=== PATIENT | female | born 1990 | race Caucasian/White ===

== ENCOUNTER 2022-03-22 19:51 | Emergency (ER) | payer MEDICAID, SELFPAY ==
[2022-03-22 20:05] VITALS: BP 122/74; PULSE 75; RESP 18; TEMP 36.8; O2SAT 99; BMI 25.8
--- NOTE | 2022-03-22 20:14 | CRLHL7_ITS ---
For Patients: As a result of the Cures Act, medical imaging exams and procedure reports are released immediately into your electronic medical record. You may view this report before your referring provider. If you have questions, please contact your health care provider. INDICATION: BLEEDING AT 7 WEEKS HISTORY: Bleeding. Seven weeks gestation. Comparison: None. Technique: Pelvic ultrasound. Endovaginal imaging of the pelvis was obtained to better evaluate the adnexa and endometrial complex. Findings: There is a single living intrauterine embryo. The crown-rump length is 6.2 mm. This corresponds to a gestational age of 6 weeks, 3 days. The ultrasound GABINO is 11/12/2022. There is a perigestational hematoma, which measures 2.0 x 1.8 x 1.5 cm. This is heterogeneous. The yolk sac appears normal. There is also a normal yolk sac present. Cardiac activity by M-mode ultrasound is 122 beats per minute. The right ovary measures 5.8 x 3.5 x 3.9 cm. There is a corpus luteum cyst in the right ovary measuring 2.8 x 2.0 x 2.2 cm. There is a benign right ovarian cyst measuring 3.5 x 2.9 x 3.6 cm. The left ovary measures 4.5 x 2.9 x 3.7 cm. Benign left ovarian cyst, which measures 3.7 x 2.6 x 3.3 cm. Impression: 1. Single living intrauterine embryo, with an ultrasound gestational age today of 6 weeks, 3 days, corresponding to an ultrasound GABINO of 11/12/2022. 2. Small perigestational hematoma. Intrauterine gestational sac appears regular. Dictated by Jonathan Contreras MD @ 03/22/2022 9:41:15 PM Dictated by: Jonathan Contreras MD @ 03/22/2022 21:41:23 (Electronically Signed)
[2022-03-22 20:15] VITALS: O2SAT 99
--- NOTE | 2022-03-22 20:22 | ED_ITS ---
HPI - General Adult General Chief complaint: Vaginal Bleeding Stated complaint: Possible miscarriage Time Seen by Provider: 03/22/22 20:10 Source: patient Mode of arrival: ambulatory Limitations: no limitations History of Present Illness HPI narrative: 31-year-old female who is about 7 weeks comes in today with vaginal bleeding. Patient states that she started having cramping 2 days ago yesterday developed some brownish vaginal discharge and today turn pink and red. She states it is just on the tissue when she wipes and a couple drops in her underwear. She continues to have cramping. She denies any other systemic symptoms. She has not had her 1st OB appointment yet. Related Data Home Medications Medication Instructions Recorded Confirmed No Known Home Medications 03/22/22 03/22/22 Allergies Allergy/AdvReac Type Severity Reaction Status Date / Time No Known Drug Allergies Allergy Verified 03/22/22 20:08 Review of Systems Status of ROS: Reports: 10 or more systems reviewed and unremarkable except as noted in History and below [facility] Medical History (Updated 03/22/22 @ 21:46 by Twila Maynard MD) Alcohol use disorder in remission Anxiety Depression Emotional hypersensitivity Insomnia Medication management Panic attack Post-traumatic stress Tetrahydrocannabinol (THC) use disorder, mild, in sustained remission, abuse Surgical History (Updated 03/22/22 @ 21:02 by Juanito Prajapati RN) History of appendectomy History of colonoscopy with polypectomy Social History Smoking Status: Current every day smoker Second hand tobacco smoke exposure: Yes How often do you have a drink containing alcohol: never How often do you have six or more drinks on one occasion: Never AUDIT-C Alcohol total score: 0 Non-prescribed substance use: denies use Little interest or pleasure in doing things: several days Feeling down, depressed, or hopeless: several days Exam Narrative: Exam Narrative: Well-nourished well-developed patient in no acute distress but is anxious. Alert and oriented. Answers questions appropriately. Mood and affect are appropriate. Thoughts are goal oriented and rational. No tangential or magical thinking noted. Patient speaks in full sentences without needing to catch their breath. HEENT: Normocephalic atraumatic. Pupils are equally round reactive to light. Extraocular muscles are intact. Conjunctivae are moist without any icterus noted. Moist mucous membranes. Cardiovascular: Regular rate rhythm S1-S2 present without murmurs Lungs: Clear auscultation bilaterally Abdomen soft and nontender with normal bowel sounds. Const: Vital Signs, click to edit/add: Vital Signs - 24 hr 03/22/22 20:05 03/22/22 20:39 Temperature 98.2 F Pulse Rate 74 Pulse Rate [Right Pulse Oximeter] 75 Respiratory Rate 18 Blood Pressure [Ri ght Upper Arm] 122/74 Pulse Oximetry 99 98 Oxygen Delivery Me thod Room Air Room Air Course Course Hospital Course: Ultrasound was done which showed an intrauterine embryo at 6 weeks 3 days, and a small perigestational hematoma. Vital Signs Vital signs: Initial Vital Signs Temperature 98.2 F 03/22/22 20:05 Temperature Source Temporal Artery Scan 03/22/22 20:05 Pulse Rate 75 03/22/22 20:05 Respiratory Rate 18 03/22/22 20:05 Blood Pressure 122/74 03/22/22 20:05 Blood Pressure Mean 90 03/22/22 20:05 Blood Pressure Position Sitting 03/22/22 20:05 Pulse Oximetry 99 03/22/22 20:05 Oxygen Delivery Method 03/22/22 20:05 Vital Signs Temperature 98.2 F 03/22/22 20:05 Pulse Rate 75 03/22/22 20:05 Respiratory Rate 18 03/22/22 20:05 Blood Pressure 122/74 03/22/22 20:05 Pulse Oximetry 99 03/22/22 20:05 Oxygen Delivery Method 03/22/22 20:05 Temperature 98.2 F 03/22/22 20:05 Pulse Rate 74 03/22/22 20:39 Respiratory Rate 18 03/22/22 20:05 Blood Pressure 122/74 03/22/22 20:05 Pulse Oximetry 98 03/22/22 20:39 Oxygen Delivery Method 03/22/22 20:39 Medical Decision Making MDM Narrative Medical decision making narrative: 31-year-old female with a perigestational hematoma, likely the cause of her vaginal bleeding. This was discussed with patient. She will follow-up with OBGYN. Lab Data Labs: Lab Results 03/22/22 Range/Units 20:20 Blood Type O Positive Imaging Data OB ultrasound: Attestation: I have reviewed the pertinent imaging results. Radiologist's impression: Pelvic ultrasound. Endovaginal imaging of the pelvis was obtained to better evaluate the adnexa and endometrial complex. Findings: There is a single living intrauterine embryo. The crown-rump length is 6.2 mm. This corresponds to a gestational age of 6 weeks, 3 days. The ultrasound GABINO is 11/12/2022. There is a perigestational hematoma, which measures 2.0 x 1.8 x 1.5 cm. This is heterogeneous. The yolk sac appears normal. There is also a normal yolk sac present. Cardiac activity by M-mode ultrasound is 122 beats per minute. The right ovary measures 5.8 x 3.5 x 3.9 cm. There is a corpus luteum cyst in the right ovary measuring 2.8 x 2.0 x 2.2 cm. There is a benign right ovarian cyst measuring 3.5 x 2.9 x 3.6 cm. The left ovary measures 4.5 x 2.9 x 3.7 cm. Benign left ovarian cyst, which measures 3.7 x 2.6 x 3.3 cm. Impression: 1. Single living intrauterine embryo, with an ultrasound gestational age today of 6 weeks, 3 days, corresponding to an ultrasound GABINO of 11/12/2022. 2. Small perigestational hematoma. Intrauterine gestational sac appears regular. Discharge Plan Discharge Clinical Impression: Subchorionic bleed Patient Disposition: Home, Self-Care Condition: Stable Additional Instructions: Follow-up with OBGYN for your 1st OB appointment. Prescriptions: No Action No Known Home Medications Follow Up/Referrals: Arash Ortiz MD [Referring] - Stand Alone Forms: [facility] Info Instructions
[2022-03-22 20:39] VITALS: PULSE 74; O2SAT 98
[2022-03-22 20:45] VITALS: BP 135/74; PULSE 72; RESP 18; O2SAT 100
[2022-03-22 22:17] VITALS: BP 122/74; PULSE 75; RESP 18; TEMP 36.8
== END 2022-03-22 22:23 | disposition home or self-care (01) ==
PROVIDERS: Emergency Provider Family Medicine
DX: O46.91 Antepartum hemorrhage, unspecified, first trimester (principal)
CPT/HCPCS: 36415; 76817; 86900; 86901; 94761; 99284

== ENCOUNTER 2023-10-30 08:46 | Day surgery (SDC) | payer OTHER, SELFPAY ==
[2023-10-30] VITALS (12 sets, daily range): BP systolic 105–124; BP diastolic 56–75; PULSE 53–67; RESP 14–18; TEMP 36.3–36.9; O2SAT 98–100; BMI 20.9
[2023-10-30 09:22] LABS: Ur HCG Qualitative* Negative (Negative)
[2023-10-30] MEDS: OXYMETAZOLINE 0.05% NASAL SPRAY 2 SPRAY NOSTRIL-B (09:29)
[2023-10-30] MEDS: LACTATED RINGERS 1000 ML 1,000 ML 100 ML IV (09:31)
[2023-10-30] MEDS: SODIUM CHLORIDE 0.9 % (FLUSH) 10 ML SYRINGE IVF (09:31)
--- NOTE | 2023-10-30 09:38 | W.ANESCHARGE ---
Anesthesia Charges Start Date/Time Anesthesia Start Date: 10/30/23 Anesthesia Start Time: 09:53 Stop Date/Time Anesthesia Stop Date: 10/30/23 Anesthesia Stop Time: 10:28
[2023-10-30] MEDS: BUPIVACAINE 0.5 %/EPI 1:200K 30 ML INJECTION (10:11)
[2023-10-30] MEDS: AYR SALINE NASAL GEL 1 APPLIC NOSTRIL-L (10:11)
[2023-10-30] MEDS: OXYMETAZOLINE (AFRIN) SOAK 1 EACH TOPICAL (10:11)
--- NOTE | 2023-10-30 10:29 | W.ANESCHARGE ---
Anesthesia Charges Start Date/Time Anesthesia Start Date: 10/30/23 Anesthesia Start Time: 09:53 Stop Date/Time Anesthesia Stop Date: 10/30/23 Anesthesia Stop Time: 10:28
[2023-10-30] MEDS: OXYCODONE 5 MG TABLET PO (11:04)
--- NOTE | 2023-10-30 11:14 | W.PM.ENTPROC ---
Procedure Note Date of procedure: 10/30/23 Procedure: Preoperative diagnosis nasal obstruction left greater than right, adenoid hypertrophy Postoperative diagnosis same Procedure adenoidectomy, submucous intramural cautery left inferior turbinate Under general trach anesthesia patient was prepped draped usual fashion nose decongested in the left inferior turbinate injected at the anterior portion. The McIvor mouth gag was inserted the tongue retracted forward. There was some residual adenoid tissue at the choana that was removed with suction cautery. The left inferior turbinate was outfractured the turbinate 1 used to cauterize intramurally at the anterior head inferior 10%. Patient procedure well a dissolvable gel pack was placed in the left nasal cavity. Blood loss less than 10 mL. Surgeon: Brady Rivera MD
[2023-10-30] MEDS: IBUPROFEN 200 MG TABLET PO (11:42)
[2023-10-30] MEDS: ACETAMINOPHEN 325 MG TABLET PO (11:42)
== END 2023-10-30 12:08 | disposition home or self-care (01) ==
LOC: OR 08:47
PROVIDERS: Anesthesiology; PCP Nurse Practitioner Family; Visit Provider Otolaryngology
PROC: (CPT 30130; principal; 2023-10-30 09:45)
DX: J34.3 Hypertrophy of nasal turbinates (principal); J35.2 Hypertrophy of adenoids; J34.89 Other specified disorders of nose and nasal sinuses
CPT/HCPCS: 42831; 30802; 00160; 00170; 81025; A9270; J0330; J1100; J2250; J2405; J2704; J3010; J3490; J7120

== ENCOUNTER 2024-10-24 15:12 | Outpatient (CLI) | payer OTHER, SELFPAY ==
[2024-10-24 23:31] LABS: Chlamydia DNA Amplified* NOT DETECTED (No Detected); GC DNA Amplified* NOT DETECTED (No Detected)
[2024-10-26 03:28] LABS: HPV Source Endocervical
[2024-10-27 10:49] LABS: Pap Test Digital Imaging Done
== END 2024-10-24 15:13 | disposition home or self-care (01) ==
PROVIDERS: PCP Family Medicine; Visit Provider Family Medicine
DX: R53.83 Other fatigue (principal); Z11.3 Encounter for screening for infections with a predominantly sexual mode of transmission; Z11.51 Encounter for screening for human papillomavirus (HPV); Z11.59 Encounter for screening for other viral diseases; Z11.4 Encounter for screening for human immunodeficiency virus [HIV]; Z13.6 Encounter for screening for cardiovascular disorders; Z13.1 Encounter for screening for diabetes mellitus; Z13.29 Encounter for screening for other suspected endocrine disorder; Z13.820 Encounter for screening for osteoporosis
CPT/HCPCS: 80053; 80061; 82306; 84443; 86592; 86703; 86803; 87491; 87591; 87624; 87625; 88141; 88142; 88175